=== PATIENT | male | born 1985 | race Hispanic/Latino ===

== ENCOUNTER 2023-11-09 00:07 | Emergency (ER) | payer OTHER ==
[~2023-11-09] VITALS: Ht 172.7 cm; Wt 102.5 kg
[2023-11-09] MEDS ORDERED: AMOX1TAB16 PO (00:18)
[2023-11-09] MEDS ORDERED: IBUP-2070 PO (00:18)
[2023-11-09] MEDS ORDERED: TETANUS/DIPHTHERIA TOXOID [ADULT] 0.5 ML VIAL IM ONE (00:30)
[2023-11-09] MEDS ORDERED: IBUPROFEN 600 MG TABLET PO ONE (00:30)
[2023-11-09 01:06] VITALS: BP 130/68; PULSE 80; RESP 16; O2SAT 98
== END 2023-11-09 01:13 | disposition home or self-care (01) ==
LOC: EDH 00:07
DX: S61.432A Puncture wound without foreign body of left hand, initial encounter (principal); W54.0XXA Bitten by dog, initial encounter; Y93.89 Activity, other specified; Y92.89 Other specified places as the place of occurrence of the external cause; Y99.8 Other external cause status
CPT/HCPCS: 73120